=== PATIENT | male | born 1995 | race American Indian/Alaskan Native ===

== ENCOUNTER 2021-10-03 18:43 | Emergency (ER) | payer SELFPAY ==
--- NOTE | 2021-10-04 06:38 | Emergency Department Report ---
ED General Adult HPI - General Chief complaint: Chest Pain Stated complaint: CHEST PAIN Time Seen by Provider: 10/04/21 06:22 Source: patient Mode of arrival: Ambulatory Limitations: No Limitations - History of Present Illness Initial comments: 26-year-old male presents emerged from complaining of a vague episode of chest pain earlier today which caused him to come to the emergency department but was essentially resolved. This present time primarily wants a note for work for yesterday and today. Reports no fever, chills, sweats. No hemoptysis no hematemesis no hematochezia, no chest trauma, no nausea, no vomiting, no shortness of breath. Pain is nonradiating associated with no presyncope. - Related Data Allergies Allergy/AdvReac Type Severity Reaction Status Date / Time No Known Allergies Allergy Verified 10/03/21 19:18 ED Review of Systems ROS: Stated complaint: CHEST PAIN Other details as noted in HPI Comment: All other systems reviewed and negative ED Past Medical Hx - Past Medical History Previous Medical History?: No - Surgical History Past Surgical History?: No - Social History Smoking Status: Never Smoker ED Physical Exam - General Limitations: No Limitations General appearance: alert, in no apparent distress - Head Head exam: Present: atraumatic, normocephalic - Eye Eye exam: Present: normal appearance - ENT ENT exam: Present: mucous membranes moist - Neck Neck exam: Present: normal inspection - Respiratory Respiratory exam: Present: normal lung sounds bilaterally. Absent: respiratory distress - Cardiovascular Cardiovascular Exam: Present: regular rate, normal rhythm. Absent: systolic murmur, diastolic murmur, rubs, gallop - GI/Abdominal GI/Abdominal exam: Present: soft, normal bowel sounds - Rectal Rectal exam: Present: deferred - Extremities Exam Extremities exam: Present: normal inspection - Back Exam Back exam: Present: normal inspection - Neurological Exam Neurological exam: Present: alert, oriented X3 - Psychiatric Psychiatric exam: Present: normal affect, normal mood - Skin Skin exam: Present: warm, dry, intact, normal color. Absent: rash ED Course Vital Signs 10/03/21 19:16 Temperature 97.9 F Pulse Rate 65 Respiratory 14 Rate Blood Pressure 139/75 O2 Sat by Pulse 100 Oximetry ED Medical Decision Making - EKG Data EKG shows normal: sinus rhythm Rate: normal Critical care attestation.: If time is entered above; I have spent that time in minutes in the direct care of this critically ill patient, excluding procedure time. ED Disposition Clinical Impression: Non-cardiac chest pain Disposition: 01 HOME / SELF CARE / HOMELESS Is pt being admited?: No Does the pt Need Aspirin: No Condition: Stable Instructions: Nonspecific Chest Pain, Adult Referrals: [facility] [Provider Group] - 3-5 Days Forms: Work/School Release Form(ED)
[2021-10-04 07:32] VITALS: BP 158/72
--- NOTE | 2021-10-06 18:48 | Electrocardiograph Report ---
[facility] Test Date: 2021-10-03 Test Time: 19:19:03 Pat Name: ROSALINO VARMA Department: Room: Gender: M [employer]acking [employer] Operator: YONATAN : 1995 Requested By: DANIELA MCFARLANE Order Number: [id number] Reading MD: Shahzad Marroquin Measurements Intervals [place] Rate: 64 P: 40 WI: 130 QRS: 78 QRSD: 73 T: 27 QT: 371 QTc: 382 Interpretive Statements Sinus rhythm No previous ECG available for comparison Electronically Signed On 10-06-2021 18:48:02 EDT by Shahzad Marroquin
== END 2021-10-04 07:20 | disposition home or self-care (01) ==
LOC: ED 18:43
DX: R07.89 Other chest pain (principal)
CPT/HCPCS: 93005; 99282